=== PATIENT | female | born 1975 | race Caucasian/White ===

== ENCOUNTER 2021-09-05 11:10 | Outpatient (CLI) | payer MEDICARE, OTHER, SELFPAY ==
[2021-09-05 13:56] LABS: Albumin* 3.8 g/dL (3.3-5.0)
[2021-09-05 13:58] LABS: Cholesterol* 242 mg/dL (90-199)
[2021-09-05 13:59] LABS: Alanine Aminotransferase* 19 U/L (4-35); Alkaline Phosphatase* 70 U/L (40-150); Aspartate Amino Transferase* 22 U/L (12-35); Bilirubin Direct* 0.4 mg/dL (0.0-0.5); Bilirubin Total* 0.8 mg/dL (0.1-1.5); HDL Cholesterol* 81 mg/dL (>=50); LDL Cholesterol Calculated 145 mg/dL (<100); Total Protein* 6.3 g/dL (6.0-8.3); Triglycerides* 82 mg/dL (40-149)
== END 2021-09-05 11:11 | disposition home or self-care (01) ==
PROVIDERS: Visit Provider Emergency Medicine
DX: E66.9 Obesity, unspecified (principal); E78.5 Hyperlipidemia, unspecified
CPT/HCPCS: 80061; 80076; 84443

== ENCOUNTER 2021-09-05 12:07 | Outpatient (CLI) | payer MEDICARE, OTHER, SELFPAY ==
--- NOTE | 2021-09-05 13:40 | MM_ITS ---
Final Report Patient: PAULA SACHI Facility:?[facility] Patient ID:?[id number] :?[id number] Study:?XRay Breast Bilateral 2D W/CAD-09/05/2021 1:38:28 PM Ordering Physician:Miles Guthrie Final Report: BILATERAL MAMMOGRAM WITH COMPUTER-AIDED DETECTION TECHNIQUE: CC and MLO views were obtained. These mammographic images have been obtained using full-field digital technique. These mammographic images were interpreted with the benefit of computer-aided detection. COMPARISON FILM: 07/09/2017, 11/24/2015, 05/13/2014. FINDINGS: There are scattered areas of fibroglandular density IMPRESSION: There is no radiographic evidence for malignancy. ASSESSMENT: BI-RADS Category 1: Negative RECOMMENDATION: Routine screening mammogram in 1 year. A lay language report of this examination will be provided to the patient. Randell Marquez M.D. Diagnostic/Musculoskeletal Radiologist [email or web address] Transcribed: 3:12 p.m. NICOLAS/Dictated by: Randell Marquez MD @ 09/06/2021 9:01:00 AM (Electronic Signature)
== END 2021-09-05 12:08 | disposition home or self-care (01) ==
PROVIDERS: Visit Provider Emergency Medicine
DX: Z12.31 Encounter for screening mammogram for malignant neoplasm of breast (principal)
CPT/HCPCS: 77067

== ENCOUNTER 2022-05-24 13:09 | Outpatient (CLI) | payer MEDICARE, OTHER, SELFPAY | END 2022-05-24 13:10 | disposition home or self-care (01) | PROVIDERS: PCP Emergency Medicine; Visit Provider Emergency Medicine | DX: Z01.419 Encounter for gynecological examination (general) (routine) without abnormal findings (principal); E78.5 Hyperlipidemia, unspecified; R79.89 Other specified abnormal findings of blood chemistry; Q89.1 Congenital malformations of adrenal gland; Z13.1 Encounter for screening for diabetes mellitus | CPT/HCPCS: 80048; 80061; 84443 ==

== ENCOUNTER 2023-05-30 11:25 | Outpatient (CLI) | payer MEDICARE, OTHER, SELFPAY | END 2023-05-30 11:26 | disposition home or self-care (01) | PROVIDERS: PCP Emergency Medicine; Visit Provider Emergency Medicine | DX: E78.5 Hyperlipidemia, unspecified (principal); E61.1 Iron deficiency; R79.89 Other specified abnormal findings of blood chemistry; R20.2 Paresthesia of skin; M25.579 Pain in unspecified ankle and joints of unspecified foot; G25.81 Restless legs syndrome; Q89.01 Asplenia (congenital) | CPT/HCPCS: 80053; 80061; 82607; 82728; 84443; 86140 ==

== ENCOUNTER 2024-12-10 10:33 | Outpatient (CLI) | payer MEDICARE, OTHER, SELFPAY ==
[2024-12-10 23:14] LABS: Chlamydia DNA Amplified* NOT DETECTED (No Detected); GC DNA Amplified* NOT DETECTED (No Detected)
[2024-12-12 10:17] LABS: HPV Source Cervix
[2024-12-15 11:38] LABS: Pap Test Digital Imaging Done
== END 2024-12-10 10:34 | disposition home or self-care (01) ==
PROVIDERS: PCP Physician Assistant Medical; Visit Provider Physician Assistant Medical
DX: Z00.00 Encounter for general adult medical examination without abnormal findings (principal)
CPT/HCPCS: 80053; 80061; 84443; 86703; 86803; 87491; 87591; 87624; 87625; 88141; 88142; 88175